=== PATIENT | female | born 1990 | race Caucasian/White ===

== ENCOUNTER → 2020-01-03 | Emergency (ER) | payer SELFPAY ==
[~2020-01-03] VITALS: Ht 157.5 cm; Wt 54.4 kg
[2020-01-03 11:46] VITALS: BP 126/65
== END | disposition home or self-care (01) ==
LOC: ER 08:59
DX: S46.812A Strain of other muscles, fascia and tendons at shoulder and upper arm level, left arm, initial encounter (principal); S16.1XXA Strain of muscle, fascia and tendon at neck level, initial encounter; V49.49XA Driver injured in collision with other motor vehicles in traffic accident, initial encounter; Y93.89 Activity, other specified; Y92.89 Other specified places as the place of occurrence of the external cause; Y99.8 Other external cause status
CPT/HCPCS: 70450; 72040; 72170; 73030; 81025

== ENCOUNTER 2021-02-15 12:38 | Observation (INO) | payer MEDICAID ==
[2021-02-15] MEDS ORDERED: PREN1TAB71 OR (14:44)
[2021-03-02] MEDS ORDERED: NIF10C PO (16:25)
== END 2021-02-15 15:10 | disposition home or self-care (01) ==
LOC: LDRP 12:38
PROVIDERS: ADMIT Obstetrics & Gynecology; ATTEND Obstetrics & Gynecology
DX: O60.03 Preterm labor without delivery, third trimester (principal); Z79.899 Other long term (current) drug therapy; Z91.040 Latex allergy status; Z3A.29 29 weeks gestation of pregnancy
CPT/HCPCS: 59025; 81002; G0378

== ENCOUNTER 2021-02-22 13:10 | Observation (INO) | payer MEDICAID ==
[~2021-02-22 13:10] MED LIST: PREN1TAB71 OR
== END 2021-02-22 15:06 | disposition home or self-care (01) ==
LOC: LDRP 13:10
PROVIDERS: ADMIT Specialist; ATTEND Specialist
DX: O60.03 Preterm labor without delivery, third trimester (principal); Z3A.30 30 weeks gestation of pregnancy
CPT/HCPCS: 59025; 76817; 81002; 94760; G0378

== ENCOUNTER 2021-03-01 13:27 | Observation (INO) | payer MEDICAID ==
[~2021-03-01] VITALS: Ht 157.5 cm; Wt 64.9 kg
[2021-03-01] MEDS ORDERED: BETAMETHASONE ACET (6MG/ML) 5ML VIAL IM ONE (14:45)
[2021-03-01 15:15] LABS: Basophils # (auto) 0 10 ^3/uL (0-0.2); Basophils % (auto) 0.2 % (0.0-2.0); Eosinophils # (auto) 0.1 10 ^3/uL (0-0.8); Eosinophils % (auto) 0.8 % (0.0-7.0); Hematocrit 41.4 % (36.0-46.0); Hemoglobin 14.4 g/dL (12.2-16.2); Lymphocytes # (auto) 1.6 10 ^3/uL (0.4-5.4); Lymphocytes % (auto) 12.4 % (10.0-50.0); Mean Corpuscular Hemoglobin 33.4 pg (28.0-32.0); Mean Corpuscular Hgb Conc. 34.9 g/dL (32.0-36.0); Mean Corpuscular Volume 95.7 fL (80.0-100.0); Monocytes # (auto) 0.6 10 ^3/uL (0-1.3); Monocytes % (auto) 4.4 % (0.0-12.0); Neutrophils # (auto) 10.5 10 ^3/uL (1.6-8.6); Neutrophils % (auto) 82.2 % (37.0-80.0); Nucleated Red Blood Cells % 0.1 %; Platelet Count (auto) 178 10^3/uL (140-450); Red Blood Cells 4.32 10^6/uL (4.0-5.20); Red Cell Distribution Width 13.5 % (11.8-14.3); White Blood Cell 12.8 10^3/uL (4.4-10.8)
[2021-03-01 15:22] LABS: Urine Bacteria FEW /hpf (None Seen); Urine Blood Negative /uL (Negative); Urine Mucus FEW (None Seen); Urine Specific Gravity 1.026 (1.001-1.035); Urine WBC 6 /hpf (0 - 5)
[2021-03-01 15:31] LABS: Calcium 8.8 mg/dL (8.5-10.1); Potassium 3.7 mmol/L (3.5-5.1); Uric Acid 4.7 mg/dL (2.6-6.0)
[2021-03-01 15:35] LABS: BUN/Creatinine Ratio 13.6; Bilirubin, Total 0.2 mg/dL (0.2-1.0); Total Protein 7.8 g/dL (6.4-8.2)
[2021-03-01 15:46] LABS: INR 0.92 (0.9-1.15); Partial Thromboplastin Time 23.9 sec (23.0-31.2)
[2021-03-01] MEDS ORDERED: LABETALOL HCL 200 MG TAB PO ONE (16:00)
[2021-03-01] MEDS ORDERED: ACETAMINOPHEN/CODEINE#3 (300/30mg) TAB PO ONE (16:00)
[2021-03-01] MEDS ORDERED: NIFEdipine 10 MG CAP PO ONE (16:30)
[2021-03-02] MEDS ORDERED: NIF10C PO ×2 (16:25)
== END 2021-03-01 18:00 | disposition home or self-care (01) ==
LOC: LDRP 13:27
PROVIDERS: ADMIT Specialist; ATTEND Specialist
DX: O13.3 Gestational [pregnancy-induced] hypertension without significant proteinuria, third trimester (principal); O36.5930 Maternal care for other known or suspected poor fetal growth, third trimester, not applicable or unspecified; Z3A.31 31 weeks gestation of pregnancy
CPT/HCPCS: 36415; 59025; 76818; 80053; 81001; 82570; 84156; 84550; 85025; 85610; 85730; 96372; G0378; J0702

== ENCOUNTER 2021-03-02 16:00 | Observation (INO) | payer MEDICAID ==
[~2021-03-02] VITALS: Ht 157.5 cm; Wt 65.3 kg
[2021-03-02] MEDS ORDERED: NIF10C PO ×2 (16:25)
[2021-03-02] MEDS ORDERED: BETAMETHASONE ACET (6MG/ML) 5ML VIAL IM ONE (16:30)
== END 2021-03-02 17:05 | disposition home or self-care (01) ==
LOC: LDRP 16:00
PROVIDERS: ADMIT Obstetrics & Gynecology; ATTEND Obstetrics & Gynecology
DX: O60.03 Preterm labor without delivery, third trimester (principal); Z3A.31 31 weeks gestation of pregnancy
CPT/HCPCS: 59025; 81002; 96372; G0378; J0702

== ENCOUNTER 2021-03-06 13:00 | Observation (INO) | payer MEDICAID ==
[~2021-03-06 13:00] MED LIST changes: +NIF10C PO
== END 2021-03-06 14:45 | disposition home or self-care (01) ==
LOC: LDRP 13:00
PROVIDERS: ADMIT Obstetrics & Gynecology; ATTEND Obstetrics & Gynecology
DX: O60.03 Preterm labor without delivery, third trimester (principal); Z3A.32 32 weeks gestation of pregnancy
CPT/HCPCS: 59025; 76818; 81002; G0378

== ENCOUNTER → 2021-03-10 13:58 | Observation (INO) | payer MEDICAID | END | disposition home or self-care (01) | LOC: LDRP 13:58 | PROVIDERS: ADMIT Specialist; ATTEND Specialist | DX: O36.5930 Maternal care for other known or suspected poor fetal growth, third trimester, not applicable or unspecified (principal); Z3A.32 32 weeks gestation of pregnancy | CPT/HCPCS: 59025; 76818; 81002; 94760; G0378 ==

== ENCOUNTER 2022-04-15 15:58 | Emergency (ER) | payer MEDICAID ==
[~2022-04-15] VITALS: Ht 157.5 cm; Wt 55.8 kg
[2022-04-15 17:02] VITALS: BP 114/60
== END 2022-04-15 18:04 | disposition home or self-care (01) ==
LOC: ER 15:58
DX: J06.9 Acute upper respiratory infection, unspecified (principal); B97.89 Other viral agents as the cause of diseases classified elsewhere; I10 Essential (primary) hypertension; Z20.822 Contact with and (suspected) exposure to COVID-19
CPT/HCPCS: 36415; 87804